=== PATIENT | male | born 1980 | race Caucasian/White ===

== ENCOUNTER 2023-10-19 01:06 | Emergency (ER) | payer MEDICAID ==
[~2023-10-19] VITALS: Ht 170.2 cm; Wt 63.0 kg
[2023-10-19 01:14] VITALS: BP 130/89; PULSE 92; RESP 16; TEMP 98.9; O2SAT 97
[2023-10-19 01:32] LABS: CLARITY URINE CLEAR (CLEAR); COLOR URINE ORANGE (YELLOW); GLUCOSE URINE NEGATIVE (NEGATIVE); KETONES URINE NEGATIVE (NEGATIVE); LEUKOCYTE ESTERASE URINE 2+ (NEGATIVE); NITRITE URINE NEGATIVE (NEGATIVE); OCCULT BLOOD URINE NEGATIVE (NEGATIVE); PROTEIN URINE NEGATIVE (NEGATIVE); SPECIFIC GRAVITY URINE 1.008 (1.005-1.030)
[2023-10-19 01:35] LABS: BASOPHILS % 0.3 % (0.0-2.0); EOSINOPHILS % 0.5 % (0.0-5.0); HEMATOCRIT. 46.8 % (42.0-52.0); HEMOGLOBIN. 15.9 g/dL (14.0-18.0); LYMPHOCYTES % 33.8 % (20.0-50.0); MEAN CORPUSCULAR HEMOGLOBIN 31.8 pg (28.0-32.0); MEAN CORPUSCULAR VOLUME 93.4 fL (80.0-94.0); MEAN PLATELET VOLUME 7.2 fl (7.4-10.4); NEUTROPHILS % 55.4 % (40.0-76.0); PLATELET 285 x1000/uL (130-400); RED BLOOD CELL COUNT 5.02 mill/uL (4.7-6.1); RED CELL DISTRIBUTION WIDTH 13.4 % (11.6-14.6); WHITE BLOOD COUNT 10.8 x1000/uL (4.5-11.0)
[2023-10-19 01:45] LABS: BACTERIA URINE 1+; RBC URINE 0-2 /hpf (0-2); SQUAMOUS EPITHELIAL CELL URINE NONE SEEN /lpf (RARE/1+); WBC URINE 50-100 /hpf (0-2)
[2023-10-19 01:49] LABS: CHLORIDE 100 mEq/L (98-107); POTASSIUM 4.1 mEq/L (3.5-5.1); SODIUM 138 mEq/L (136-145)
[2023-10-19 01:50] LABS: CALCIUM 9.1 mg/dL (8.7-10.4); CARBON DIOXIDE 30 mEq/L (21-32)
[2023-10-19 01:55] LABS: GLUCOSE 135 mg/dL (70-105); UREA NITROGEN BLOOD 8 mg/dL (9-23)
[2023-10-19] MEDS: MAGNESIUM/ALUMINUM HYDROXIDE/SIMETHICONE 30ML UDC PO ONE (03:15)
[2023-10-19] MEDS: PANTOPRAZOLE 40MG DR TABLET PO ONE (03:15)
[2023-10-19] MEDS: ONDANSETRON 4MG ODT PO ONE (03:15)
[2023-10-19] MEDS ORDERED: PROT40 MT (04:28)
[2023-10-19] MEDS ORDERED: ONDA4TAB50 MT (04:28)
[2023-10-19] MEDS ORDERED: MAG355OR21 MT (04:28)
== END 2023-10-19 04:49 | disposition home or self-care (01) ==
LOC: ER 01:06
DX: K29.20 Alcoholic gastritis without bleeding (principal); Z00.00 Encounter for general adult medical examination without abnormal findings
CPT/HCPCS: 99284; 80048; 81003; 83690; 85025; 87086; 36415; Q0162